=== PATIENT | male | born 1995 | race Caucasian/White ===

== ENCOUNTER 2022-03-02 19:53 | Emergency (ER) | payer MEDICAID ==
[~2022-03-02] VITALS: Ht 182.9 cm; Wt 75.7 kg
[2022-03-02 20:05] VITALS: BP 130/70
--- NOTE | 2022-03-02 20:12 | NUR ---
PT TAKEN TO ER BED 07
[2022-03-02 20:32] LABS: BASOPHILS % (AUTO) 0.4 % (0.0-2.0); EOSINOPHILS # (AUTO) 0.1 K/uL (0-0.4); EOSINOPHILS % (AUTO) 1.9 % (0.0-4.0); HEMATOCRIT 36.1 % (36-52); HEMOGLOBIN 12.1 g/dL (12.0-18.0); LYMPHOCYTES # (AUTO) 1.8 K/uL (2.0-11.5); LYMPHOCYTES % (AUTO) 33.3 % (20.5-51.1); MEAN CORPUSCULAR HEMOGLOBIN 29 pg (27-31); MEAN CORPUSCULAR HGB CONC 33 g/dL (33-37); MONOCYTES # (AUTO) 0.7 K/uL (0.8-1.0); MONOCYTES % (AUTO) 12.1 % (1.7-9.3); NEUTROPHILS # (AUTO) 2.9 K/uL (1.8-7.7); NEUTROPHILS % (AUTO) 52.3 % (42.2-75.2); PLATELET COUNT (AUTO) 349 K/uL (140-450); RED CELL DISTRIBUTION WIDTH 14.1 % (11.6-13.7); WHITE BLOOD COUNT (AUTO) 5.5 K/uL (4.8-10.8)
--- NOTE | 2022-03-02 20:45 | NUR ---
TELEPSYCH SCHEDULED FOR [address] Olsen
--- NOTE | 2022-03-02 21:00 | NUR ---
UA OBTAINED AND SENT TO LAB
--- NOTE | 2022-03-02 21:00 | NUR ---
LAB AT BEDSIDE
[2022-03-02 21:02] LABS: APPEARANCE,URINE CLEAR (CLEAR); BILIRUBIN,URINE NEGATIVE (NEGATIVE); BLOOD, URINE NEGATIVE (NEGATIVE); COLOR,URINE AMBER (YELLOW); LEUKOCYTE ESTERASE ,URINE NEGATIVE (NEGATIVE); NITRITE, URINE NEGATIVE (NEGATIVE); UGLUCOSE NEGATIVE (NEGATIVE)
[2022-03-02 21:02] LABS: ACETAMINOPHEN < 0.5 ug/ml (10-30); ANION GAP 13.9 (8-16); ASPARTATE AMINOTRANSFERASE 38 U/L (15-37); CARBON DIOXIDE 29.3 mmol/L (21-32); CHLORIDE 100 mmol/L (98-107); CREATININE 0.9 mg/dL (0.6-1.3); GFR ARICAN-AMERICAN 132 mL/min (>90); GLUCOSE 98 mg/dL (74-106); POTASSIUM 3.2 mmol/L (3.5-5.1); SALICYLATE < 2.8 mg/dL (2.8-20.0); SODIUM SERUM 140 mmol/L (136-145); TOTAL BILIRUBIN 0.5 mg/dL (0.0-1.0); UREA NITROGEN, BLOOD 20 mg/dL (7-18)
[2022-03-02 21:15] LABS: BARBITURATE, URINE NEGATIVE ng/ml (NEG <=200); BENZODIAZEPINE, URINE POSITIVE ng/mL (NEG <=200); CANNABINOID, URINE POSITIVE ng/mL (NEG <=50); COCAINE, URINE NEGATIVE ng/mL (NEG <=300); OPIATE, URINE NEGATIVE ng/mL (NEG <=2000); PHENCYCLIDINE SCREEN,URINE POSITIVE ng/mL (NEG <=25)
--- NOTE | 2022-03-02 21:38 | NUR ---
26/M BIB SELF AMBULATORY, AAOX4. C/O "I WENT TO THREE HOSPITALS ,I WANT TO GO TO A PSYCH HOSPITAL TO GET DETOX AND MEDS". "I JUST WANT TO GET HELP". PATIENT NOT TAKING MEDICATION AT THIS TIME. PATIENT DENIES SI AT THIS TIME. MD AWARE PMHX BIPOLAR, PTSD NKA
--- NOTE | 2022-03-02 23:01 | NUR ---
PT ON TELEPSYCH CALL WITH DR. Olsen
[2022-03-02] MEDS ORDERED: QUEtiapine FUMARATE 25 MG TAB PO SCH (23:25)
--- NOTE | 2022-03-02 23:40 | NUR ---
TELEPSYCH ON THE PHONE WITH MITCHELL
--- NOTE | 2022-03-03 01:17 | NUR ---
PATIENT RESTING IN BED. BED LOW AND LOCKED. ALL NEEDS MET AT THIS TIME.
--- NOTE | 2022-03-03 03:30 | NUR ---
patient vss, resting in bed at this time. stated he was feeling tired but good "I still just want to get help". patient denies intention to harm self or others at this time.
--- NOTE | 2022-03-03 06:04 | NUR ---
patient vss, resting in bed at this time. bed low and locked. all needs met
--- NOTE | 2022-03-03 06:04 | NUR ---
patient denies SI at this time
--- NOTE | 2022-03-03 06:57 | NUR ---
PATIENT SLEEPING IN BED AT THIS TIME. BED LOW AND LOCKED, BLANQUITA SIDE RAILS UP FOR SAFETY. ALL NEEDS MET AT THIS TIME
--- NOTE | 2022-03-03 07:18 | NUR ---
Pt report given to moreno Foote. Transfer of care at this time.
--- NOTE | 2022-03-03 07:22 | NUR ---
Recieved report from VIVIANA SUTHERLAND. Assumed care at this time
--- NOTE | 2022-03-03 08:45 | NUR ---
Pt swabbed (tammy & novel) for covid. specimens walked to lab.
--- NOTE | 2022-03-03 08:46 | NUR ---
pt given blanket and offered food.
--- NOTE | 2022-03-03 10:29 | NUR ---
PT ON VIDEOCALL WITH TELEPSYCH
--- NOTE | 2022-03-03 12:41 | NUR ---
pt given food tray, requesting to go to [facility] for psychiatric assistance.
[2022-03-03 13:01] VITALS: BP 119/78
--- NOTE | 2022-03-03 13:02 | NUR ---
Patient discharged with v/s stable. Written and verbal after care instructions given and explained. Patient verbalized understanding. Ambulatory to [facility] keiko gutierrez. All questions addressed prior to discharge. Advised to follow up with PMD.
== END 2022-03-03 13:02 | disposition home or self-care (01) ==
LOC: MED 19:53
DX: R45.851 Suicidal ideations (principal); Z20.822 Contact with and (suspected) exposure to COVID-19; F32.9 Major depressive disorder, single episode, unspecified; F41.9 Anxiety disorder, unspecified
CPT/HCPCS: 36415; 80053; 80305; 81003; 85025; 87426; 87635; 99285; C9803; G0480; G0482